=== PATIENT | female | born 1995 | race Caucasian/White ===

== ENCOUNTER 2016-06-23 05:51 | Inpatient (IN) | payer MEDICAID ==
[~2016-06-23] VITALS: Ht 167.6 cm; Wt 84.5 kg
[2016-06-23] VITALS (29 sets, daily range): BP systolic 115–146; BP diastolic 62–86
[~2016-06-23 05:51] MED LIST: DCS100C PO; FERR-47 PO; IBP600T1 PO; NITR-65 PO; PRNMV1T PO; breast pump
[2016-06-23] MEDS ORDERED: D5 LR IV SOLUTION 1,000 ML IV ONE (06:20)
[2016-06-23] MEDS ORDERED: D5 LR IV SOLUTION 1,000 ML IV SCH (06:23)
[2016-06-23] MEDS ORDERED: OXYTOCIN/NORMAL SALINE 500 ML IV SCH ×2 (06:30→13:47)
[2016-06-23] MEDS ORDERED: MINERAL OIL CONCENTRATE 99.9% 15 ML UDC TOP PRN (06:30)
[2016-06-23 07:01] LABS: BASOPHILS % (AUTO) 0 % (0-10); EOSINOPHILS % (AUTO) 0 % (0-10); LYMPHOCYTES # (AUTO) 1.6 X 10^3 (1.0-4.0); LYMPHOCYTES % (AUTO) 19 % (12-44); MEAN CORPUSCULAR HEMOGLOBIN 29 PG (25-34); MEAN CORPUSCULAR HGB CONC 33 G/DL (32-36); MEAN CORPUSCULAR VOLUME 87 FL (80-99); MEAN PLATELET VOLUME 9.5 FL (7.4-10.4); MONOCYTES # (AUTO) 0.5 X 10^3 (0.0-1.0); MONOCYTES % (AUTO) 5 % (0-12); NEUTROPHILS # (AUTO) 6.4 X 10^3 (1.8-7.8); NEUTROPHILS % (AUTO) 76 % (42-75); PLATELET COUNT 194 10^3/uL (130-400); RED BLOOD COUNT 3.94 10^6/uL (4.35-5.85); RED CELL DISTRIBUTION WIDTH 12.7 % (10.0-14.5); WHITE BLOOD COUNT 8.5 10^3/uL (4.3-11.0)
[2016-06-23 07:45] LABS: BILIRUBIN,URINE NEGATIVE (NEGATIVE); KETONES,URINE NEGATIVE (NEGATIVE); LEUKOCYTE ESTERASE ,URINE 1+ (NEGATIVE); NITRITE,URINE NEGATIVE (NEGATIVE); PH,URINE 6.5 (5-9); PROTEIN,URINE NEGATIVE (NEGATIVE); UROBILINOGEN,URINE NORMAL (NORMAL)
[2016-06-23] MEDS ORDERED: fentaNYL INJECTION 100 MCG/2 ML AMP IVP ONE (10:45)
[2016-06-23] MEDS ORDERED: LIDOCAINE/EPI 1%-1:200,000 (XYLOCAINE) 30 ML VIAL ONE (13:24)
[2016-06-23] MEDS ORDERED: LIDOCAINE/EPI 1%-1:200,000 (XYLOCAINE) 30 ML VIAL INJ ONE (13:45)
--- NOTE | 2016-06-23 13:53 | OB Labor & Delivery Record ---
Vag Delivery Note Vag Delivery Note Date of Delivery: 06/23/16 Preoperative Diagnosis: Renée Winter is a 20 /Para 2 /1 , Gestational Age 40 4/7 weeks for induction due to post dates Postoperative Diagnosis: Same Surgeon: DOROTHY CASTELLANOS Glaze Supervisor: Jennifer Green MS IV Anesthesia: local Delivery Type: Findings: Viable male , apgars 9/9, weight7#11oz Lacerations: bilateral interlabial lacerations (vaginal) Intact placenta with 3 vessel cord. No nuchal cord, body cord or shoulder dystocia Estimated Blood Loss: 300 ml Complications: None Condition: Stable Description of Procedure: The patient is a 20 /Para 2 /1 ,Gestational Age 40 4/7 weeks for induction due to post dates. She was admitted and informed consent was obtained. Her labor course was remarkable for Oxytocin augmentation, AROM, Fentanyl IV x 1. She progressed to complete dilatation and began to push. She was then set up for delivery. The infant's head was delivered atraumatically in the OA position. The baby remained OA with a compound presentation (hands on either shoulder) and remained in a horizontal position. The shoulders and remainder of the infant's body were then delivered without difficulty. Upon delivery, the head was held below the level of the perineum and the mouth and nares were bulb suctioned. The cord was doubly clamped and cut and the infant was handed off to the pediatric staff. An intact placenta with 3-vessel cord delivered via Yemi and there was found to be minimal bleeding.~ Vigorous fundal massage was performed and the fundus was found to be firm. IV oxytocin was given. Examination of the vagina and perineum revealed bilateral interlabial lacerations. However, the anterior lacerations were hemostatic. There was bleeding noted from the left side where the laceration extended toward the vagina and this was repaired in the usual fashion with 3-0 Vicryl suture. Following the repair, sponge, instrument and needle counts were correct. Mom and baby were both in stable condition in the labor suite. Vitals - Labs Vital Signs - I&O Vital Signs Date Time Temp Pulse Resp B/P (MAP) Pulse Ox O2 Delivery O2 Flow Rate FiO2 06/23/16 12:15 100 18 135/78 Room Air 06/23/16 12:00 97 18 125/73 Room Air 06/23/16 11:45 107 18 129/73 Room Air 06/23/16 11:30 97.3 96 18 134/81 Room Air 06/23/16 11:15 90 18 126/70 Room Air 06/23/16 11:00 96 18 122/65 Room Air 06/23/16 10:45 97 18 126/62 Room Air 06/23/16 10:30 96 18 136/69 Room Air 06/23/16 10:15 98.5 83 18 145/76 Room Air 06/23/16 10:00 80 18 137/73 Room Air 06/23/16 09:45 91 18 129/70 Room Air 06/23/16 09:30 76 18 128/72 Room Air 06/23/16 09:15 86 18 129/83 Room Air 06/23/16 09:00 75 18 129/68 Room Air 06/23/16 08:45 80 18 127/68 Room Air 06/23/16 08:30 96 18 132/67 Room Air 06/23/16 08:15 98.9 88 18 127/66 Room Air 06/23/16 08:00 Room Air 06/23/16 07:30 Room Air 06/23/16 07:00 98.9 98 18 117/80 Room Air Labs Laboratory Tests 06/23/16 06:50: White Blood Count 8.5, Red Blood Count 3.94L, Hemoglobin 11.4L, Hematocrit 34L, Mean Corpuscular Volume 87, Mean Corpuscular Hemoglobin 29, Mean Corpuscular Hemoglobin Concent 33, Red Cell Distribution Width 12.7, Platelet Count 194, Mean Platelet Volume 9.5, Neutrophils (%) (Auto) 76H, Lymphocytes (%) (Auto) 19 , Monocytes (%) (Auto) 5, Eosinophils (%) (Auto) 0, Basophils (%) (Auto) 0, Neutrophils # (Auto) 6.4, Lymphocytes # (Auto) 1.6, Monocytes # (Auto) 0.5, Eosinophils # (Auto) 0.0, Basophils # (Auto) 0.0 06/23/16 07:30: Urine Color YELLOW, Urine Clarity CLEAR, Urine pH 6.5, Urine Specific [place] 1.015L, Urine Protein NEGATIVE, Urine Glucose (UA) NEGATIVE, Urine Ketones NEGATIVE, Urine Nitrite NEGATIVE, Urine Bilirubin NEGATIVE, Urine Urobilinogen NORMAL, Urine Leukocyte Esterase 1+H, Urine RBC (Auto) 2+H, Urine RBC 2-5H, Urine WBC 2-5, Urine Squamous Epithelial Cells 2-5, Urine Crystals NONE, Urine Bacteria NEGATIVE, Urine Casts NONE, Urine Mucus NEGATIVE, Urine Culture Indicated NO DOROTHY CASTELLANOS DO Jun 23, 2016 13:53
[2016-06-23] MEDS ORDERED: IBUP-1773 PO (13:56)
[2016-06-23] MEDS ORDERED: HYDR-3729 PO (13:56)
--- NOTE | 2016-06-23 13:57 | Discharge Inst-Women's Service ---
Discharge Inst-Women's Serv Depart Medication/Instructions New, Converted or Re-Newed RX: RX on Chart Final Diagnosis post dates vaginal delivery Consults/Follow Up Additional Follow Up: Yes (6 weeks) Activity Activity: Activity as Tolerated Driving Instructions: You May Drive NO SMOKING: NO SMOKING Nothing Inside Vagina: No Douching, No [place], No Tampons Diet Discharge Diet: No Restrictions Symptoms to Report to : Swelling Increased, Bleeding Excessive, Fever Over 101 Degrees F, Vaginal Bleeding Increase, Cramps in Feet or Legs, Vaginal Discharge Foul For Any Problems or Questions: Contact Your Physician DOROTHY CASTELLANOS DO Jun 23, 2016 13:57
[2016-06-23] MEDS ORDERED: CATHETER FLUSH 10 ML SYR IV SCH (14:00)
[2016-06-23] MEDS ORDERED: MEASLES,MUMPS,RUBELLA 1 EA INJ SQ ONE (14:00)
[2016-06-23] MEDS ORDERED: BENZOCAINE/MENTHOL (DERMOPLAST) 56 ML CAN TP PRN (14:00)
[2016-06-23] MEDS ORDERED: HYDROcodone/APAP 5 MG/325 MG (LORTAB) TAB PO PRN (14:00)
[2016-06-23] MEDS ORDERED: TETANUS,DIPTH,PERTUSS P/F (BOOSTRIX) 0.5 ML VIAL IM ONE (14:00)
[2016-06-23] MEDS ORDERED: WITCH HAZEL(TUCKS) 40 EA JAR TOP PRN (14:00)
[2016-06-23] MEDS: IBUPROFEN 600 MG (MOTRIN) TAB PO SCH ×2 (16:05→22:32)
[2016-06-23] MEDS: DOCUSATE SODIUM 100 MG (COLACE) CAP PO SCH (22:32)
[2016-06-24 02:30] VITALS: BP 115/75
[2016-06-24] MEDS: IBUPROFEN 600 MG (MOTRIN) TAB PO SCH ×3 (04:43→21:30)
[2016-06-24 06:19] LABS: BASOPHILS % (AUTO) 0 % (0-10); EOSINOPHILS % (AUTO) 0 % (0-10); LYMPHOCYTES # (AUTO) 2.5 X 10^3 (1.0-4.0); LYMPHOCYTES % (AUTO) 19 % (12-44); MEAN CORPUSCULAR HEMOGLOBIN 29 PG (25-34); MEAN CORPUSCULAR HGB CONC 33 G/DL (32-36); MEAN CORPUSCULAR VOLUME 88 FL (80-99); MEAN PLATELET VOLUME 9.6 FL (7.4-10.4); MONOCYTES # (AUTO) 0.8 X 10^3 (0.0-1.0); MONOCYTES % (AUTO) 7 % (0-12); NEUTROPHILS # (AUTO) 9.6 X 10^3 (1.8-7.8); NEUTROPHILS % (AUTO) 74 % (42-75); PLATELET COUNT 195 10^3/uL (130-400); RED BLOOD COUNT 3.72 10^6/uL (4.35-5.85); RED CELL DISTRIBUTION WIDTH 12.5 % (10.0-14.5)
[2016-06-24 06:38] VITALS: BP 102/58
[2016-06-24] MEDS ORDERED: PRENATAL VITAMIN 1 EA TAB PO SCH (07:00)
--- NOTE | 2016-06-24 08:04 | Postpartum Progress Note ---
Note Note Day # 1 Subjective: Patient is without complaints. Ambulating, voiding. Tolerating a regular diet without nausea or vomiting. Normal lochia. Pain is well controlled with oral pain medications. Breast feeding. Objective: VS - Last 72 Hours, by Label 06/23/16 06/23/16 06/23/16 06/23/16 07:00 07:30 08:00 08:15 Temp 98.9 98.9 Pulse 98 88 Resp 18 18 B/P (MAP) 117/80 127/66 O2 Delivery Room Air Room Air Room Air Room Air 06/23/16 06/23/16 06/23/16 06/23/16 08:30 08:45 09:00 09:15 Pulse 96 80 75 86 Resp 18 18 18 18 B/P (MAP) 132/67 127/68 129/68 129/83 O2 Delivery Room Air Room Air Room Air Room Air 06/23/16 06/23/16 06/23/16 06/23/16 09:30 09:45 10:00 10:15 Temp 98.5 Pulse 76 91 80 83 Resp 18 18 18 18 B/P (MAP) 128/72 129/70 137/73 145/76 O2 Delivery Room Air Room Air Room Air Room Air 06/23/16 06/23/16 06/23/16 06/23/16 10:30 10:45 11:00 11:15 Pulse 96 97 96 90 Resp 18 18 18 18 B/P (MAP) 136/69 126/62 122/65 126/70 O2 Delivery Room Air Room Air Room Air Room Air 06/23/16 06/23/16 06/23/16 06/23/16 11:30 11:45 12:00 12:15 Temp 97.3 Pulse 96 107 97 100 Resp 18 18 18 18 B/P (MAP) 134/81 129/73 125/73 135/78 O2 Delivery Room Air Room Air Room Air Room Air 06/23/16 06/23/16 06/23/16 06/23/16 12:30 12:45 13:00 13:15 Pulse 113 82 94 Resp 18 18 18 B/P (MAP) 139/73 136/83 138/86 O2 Delivery Room Air Room Air Room Air Room Air 06/23/16 06/23/16 06/23/16 06/23/16 13:25 13:43 13:58 14:13 Temp 98.5 98.2 98.8 Pulse 100 93 93 Resp 18 18 18 B/P (MAP) 146/62 126/64 124/70 O2 Delivery Room Air Room Air Room Air Room Air 06/23/16 06/23/16 06/23/16 06/23/16 14:28 14:43 15:14 15:43 Temp 100.4 Pulse 103 88 99 99 Resp 18 18 18 18 B/P (MAP) 115/67 120/68 128/76 128/76 O2 Delivery Room Air Room Air Room Air Room Air 06/23/16 06/23/16 06/24/16 06/24/16 18:05 22:35 02:30 06:38 Temp 100.1 100.6 99.4 99.2 Pulse 102 105 83 Resp 18 18 18 B/P (MAP) 117/73 115/75 102/58 Pulse Ox 99 98 97 O2 Delivery Room Air Room Air Room Air Physical Exam: General - Alert and oriented, no apparent distress Abdomen - Soft, appropriately tender to palpation, non-distended, fundus firm at umbilicus Extremities - no edema, negative [place]'s bilaterally Laboratory Tests Test 06/24/16 06:11 Range/Units White Blood Count 13.0 H 4.3-11.0 10^3/uL Red Blood Count 3.72 L 4.35-5.85 10^6/uL Hemoglobin 10.7 L 11.5-16.0 G/DL Hematocrit 33 L 35-52 % Mean Corpuscular Volume 88 80-99 FL Mean Corpuscular Hemoglobin 29 25-34 PG Mean Corpuscular Hemoglobin Concent 33 32-36 G/DL Red Cell Distribution Width 12.5 10.0-14.5 % Platelet Count 195 130-400 10^3/uL Mean Platelet Volume 9.6 7.4-10.4 FL Neutrophils (%) (Auto) 74 42-75 % Lymphocytes (%) (Auto) 19 12-44 % Monocytes (%) (Auto) 7 0-12 % Eosinophils (%) (Auto) 0 0-10 % Basophils (%) (Auto) 0 0-10 % Neutrophils # (Auto) 9.6 H 1.8-7.8 X 10^3 Lymphocytes # (Auto) 2.5 1.0-4.0 X 10^3 Monocytes # (Auto) 0.8 0.0-1.0 X 10^3 Eosinophils # (Auto) 0.0 0.0-0.3 10^3/uL Basophils # (Auto) 0.0 0.0-0.1 10^3/uL Assessment: 20 y/o post- day # 1, status post spontaneous vaginal delivery. Recovering well, hemodynamically stable Acute blood loss anemia Hgb 10.7 Plan: Routine care. Encourage breast feeding. Encourage ambulation. Ferrous sulfate supplementation. Plan for discharge today, f/u with Dr. Parekh in 6 weeks. Vitals - Labs Vital Signs - I&O Vital Signs Date Time Temp Pulse Resp B/P (MAP) Pulse Ox O2 Delivery O2 Flow Rate FiO2 06/24/16 06:38 99.2 83 18 102/58 97 Room Air 06/24/16 02:30 99.4 105 18 115/75 98 Room Air 06/23/16 22:35 100.6 102 18 117/73 99 Room Air 06/23/16 18:05 100.1 06/23/16 15:43 100.4 99 18 128/76 Room Air 06/23/16 15:14 99 18 128/76 Room Air 06/23/16 14:43 88 18 120/68 Room Air 06/23/16 14:28 103 18 115/67 Room Air 06/23/16 14:13 98.8 93 18 124/70 Room Air 06/23/16 13:58 98.2 93 18 126/64 Room Air 06/23/16 13:43 98.5 100 18 146/62 Room Air 06/23/16 13:25 Room Air 06/23/16 13:15 Room Air 06/23/16 13:00 94 18 138/86 Room Air 06/23/16 12:45 82 18 136/83 Room Air 06/23/16 12:30 113 18 139/73 Room Air 06/23/16 12:15 100 18 135/78 Room Air 06/23/16 12:00 97 18 125/73 Room Air 06/23/16 11:45 107 18 129/73 Room Air 06/23/16 11:30 97.3 96 18 134/81 Room Air 06/23/16 11:15 90 18 126/70 Room Air 06/23/16 11:00 96 18 122/65 Room Air 06/23/16 10:45 97 18 126/62 Room Air 06/23/16 10:30 96 18 136/69 Room Air 06/23/16 10:15 98.5 83 18 145/76 Room Air 06/23/16 10:00 80 18 137/73 Room Air 06/23/16 09:45 91 18 129/70 Room Air 06/23/16 09:30 76 18 128/72 Room Air 06/23/16 09:15 86 18 129/83 Room Air 06/23/16 09:00 75 18 129/68 Room Air 06/23/16 08:45 80 18 127/68 Room Air 06/23/16 08:30 96 18 132/67 Room Air 06/23/16 08:15 98.9 88 18 127/66 Room Air I & O 06/24/16 07:00 Intake Total 1625 ml Balance 1625 ml Labs Laboratory Tests 06/24/16 06:11: White Blood Count 13.0H, Red Blood Count 3.72L, Hemoglobin 10.7L, Hematocrit 33L , Mean Corpuscular Volume 88, Mean Corpuscular Hemoglobin 29, Mean Corpuscular Hemoglobin Concent 33, Red Cell Distribution Width 12.5, Platelet Count 195, Mean Platelet Volume 9.6, Neutrophils (%) (Auto) 74, Lymphocytes (%) (Auto) 19, Monocytes (%) (Auto) 7, Eosinophils (%) (Auto) 0, Basophils (%) (Auto) 0, Neutrophils # (Auto) 9.6H, Lymphocytes # (Auto) 2.5, Monocytes # (Auto) 0.8, Eosinophils # (Auto) 0.0, Basophils # (Auto) 0.0 Microbiology 06/23/16 Urine Culture - Preliminary, Resulted RAPHAEL BORGES MD Jun 24, 2016 08:04
[2016-06-24] MEDS ORDERED: FERROUS SULF 325 MG (IRON) TAB PO SCH (09:00)
[2016-06-24 12:48] VITALS: BP 132/73
[2016-06-24] MEDS: DOCUSATE SODIUM 100 MG (COLACE) CAP PO SCH ×2 (12:49→21:30)
--- NOTE | 2016-06-24 12:52 | Progress Note-Standard ---
Standard Progress Note Progress Notes/Assess & Plan Date Seen 06/24/16 Assess & Plan/Chief Complaint Update Note I was informed by Dr. Nixon (caring for Renée's ) that the has signs concerning for sepsis. She also told me Renée revealed to her that she was not feeling well upon admission, has been feeling better today though. Renée tells me her roommate has tonsilitis and she has been in close contact with her. She states she did feel feverish overnight but feels fine currently. Her throat has been sore and she has had nasal congestion. No chest pain, shortness of breath, abdominal pain (other than mild cramps). Review of vitals shows low grade temps overnight (to 100.6F) - mild elevation in temp thereafter (in 99F range) but no actual fever. Last pulse 80s, normal BP , normal oxygen saturation. There is a leukocytosis noted, no left shift on today's CBC. Exam NAD No accessory muscle use for respiration Normal capillary refill Abd soft nttp fundus appropriately tender to palpation Trace bilat pitting edema I reviewed with Renée that we will hold her discharge. Screen for strep pharyngitis was requested by door liner helper and ordered and will be obtained per RN. Will continue to monitor closely but only meeting 1/4 SIRS criteria currently ( leukocytosis - and this is commonly seen in the state). I suspect a viral illness is the cause of her upper respiratory symptoms. Will consider oral antibiotic therapy if fevers noted. Will await culture. Hold discharge for today. Labs Laboratory Tests 06/23/16 06:50 06/24/16 06:11 RAPHAEL BORGES MD Jun 24, 2016 12:52
[2016-06-24 21:30] VITALS: BP 127/74
[2016-06-25] MEDS: IBUPROFEN 600 MG (MOTRIN) TAB PO SCH (03:18)
[2016-06-25 03:23] VITALS: BP 102/64
[2016-06-25 07:45] VITALS: BP 115/52
[2016-06-25] MEDS ORDERED: RIFA300C3 PO (10:24)
[2016-06-25] MEDS ORDERED: RIFAMPIN 150 MG (RIFADIN) CAP PO SCH (10:27)
--- NOTE | 2016-06-25 10:50 | Progress Note-Standard ---
Standard Progress Note Progress Notes/Assess & Plan Progress/Assessment & Plan Patient doing well, concerned about a clot she passed earlier, but bleeding continues to be WNL per RN. Vitals and Hgb stable. Patient's infant is being discharged home. Vital Sign - Last 24 Hours 06/24/16 06/24/16 06/25/16 12:48 21:30 03:23 Temp 97.2 97.6 97.7 Pulse 115 104 90 Resp 18 18 18 B/P (MAP) 132/73 127/74 102/64 Pulse Ox 98 98 95 O2 Delivery Room Air Room Air Room Air Laboratory Tests Test 06/24/16 13:25 Range/Units Group A Streptococcus Screen NEGATIVE NEGATIVE Uterine fundus firm and below umbilicus Diagnosis: PPD 1 NVD P: DC patient due to infant transfer so mother can be with infant DC'ed per my partner on Rifampin, and short term follow up recommended. GUMARO SOSA DO Jun 25, 2016 10:50 am
[2016-06-25] MEDS ORDERED: MEASLES,MUMPS,RUBELLA 1 EA INJ SC ONE (11:00)
[2016-06-25] MEDS ORDERED: TETANUS,DIPTH,PERTUSS P/F (BOOSTRIX) 0.5 ML VIAL IM ONE (11:00)
== END 2016-06-25 11:45 | disposition home or self-care (01) | DRG 775 ==
LOC: LDRP 06:07
PROVIDERS: ADMIT Obstetrics & Gynecology; ATTEND Obstetrics & Gynecology
PROC: 0HQ9XZZ Repair Perineum Skin, External Approach (ICD-10-PCS; principal; 2016-06-23)
PROC: 10E0XZZ Delivery of Products of Conception, External Approach (ICD-10-PCS; 2016-06-23)
PROC: 3E033VJ Introduction of Other Hormone into Peripheral Vein, Percutaneous Approach (ICD-10-PCS; 2016-06-23)
DX: O48.0 Post-term pregnancy (principal); O70.0 First degree perineal laceration during delivery; O90.81 Anemia of the puerperium; D62 Acute posthemorrhagic anemia; Z3A.40 40 weeks gestation of pregnancy; Z37.0 Single live birth; Z23 Encounter for immunization
CPT/HCPCS: 36415; 81000; 85025; 86850; 86900; 86901; 87088; 87430; 90707; 90715

== ENCOUNTER → 2016-08-19 | Outpatient (CLI) | payer MEDICAID ==
[~2016-08-19] MED LIST changes: +HYDR-3729 PO; +IBUP-1773 PO; +RIFA300C3 PO
--- NOTE | 2016-08-19 16:15 | Diagnostic Imaging Report ---
PROCEDURE: MRI lumbar spine. TECHNIQUE: Multiplanar, multisequence MRI of the lumbar spine was performed without contrast. INDICATION: Back pain. FINDINGS: There is suggestion of bilateral underlying pars defects at L5 level. No associated significant spondylolisthesis. The alignment of the posterior spinal line is satisfactory. The vertebral body heights are preserved. There is mild disc height loss at L5/S1. No significant disc desiccation. The marrow signal in the lumbar spine is unremarkable. The cauda equina and conus medullaris appear grossly unremarkable. T11/T12: There is a broad-based left paracentral disc protrusion not associated with spinal canal or foraminal stenosis. T12/L1: No disc herniation and no facet arthropathy. No spinal canal or foraminal stenosis. L1/L2: No disc herniation. There is mild facet hypertrophy. No spinal canal or foraminal stenosis. L2/L3: No disc herniation. There is mild facet hypertrophy. No spinal canal or foraminal stenosis. L3/L4: No disc herniation. There is mild to moderate facet arthropathy and tiny facet joint effusion. No central canal, lateral recess or foraminal stenosis. L4/L5: There is a minimal disc bulge and moderate facet hypertrophy. No central canal stenosis. There is minimal narrowing of the lateral recess, particularly on the left side. There is no foraminal stenosis. L5/S1: There is suggestion of bilateral L5 pars defects. There is also moderate facet arthropathy bilaterally. There is a broad-based right paracentral disc protrusion abutting the descending right S1 nerve root in the right lateral recess although no significant right lateral recess stenosis is seen. The left lateral recess and the central canal are patent. There is lipomatosis, however, around the thecal sac which is collapsed around the remaining sacral nerves at this level. No foraminal stenosis. When compared to 2009 exam, there is slightly increased epidural lipomatosis seen compared to the prior exam. IMPRESSION: Lower lumbar spine facet arthropathy and degenerative changes around bilateral L5 pars defects. There is lipomatosis in the lower spinal canal collapsing the thecal sac around the remaining sacral nerves at L5/S1 without compression by disc or facet hypertrophy. At this level, a prominent right paracentral disc protrusion displaces the right descending S1 nerve root posteriorly without significant compression otherwise in the right lateral recess. Dictated by: Dictated on workstation # [id number]
== END ==
LOC: RAD 14:20
PROVIDERS: ATTEND Nurse Practitioner Family
DX: M51.17 Intervertebral disc disorders with radiculopathy, lumbosacral region (principal); M47.816 Spondylosis without myelopathy or radiculopathy, lumbar region; D17.79 Benign lipomatous neoplasm of other sites
CPT/HCPCS: 72148

== ENCOUNTER → 2019-06-07 | Outpatient (CLI) | payer BC ==
--- NOTE | 2019-06-07 11:04 | Diagnostic Imaging Report ---
PROCEDURE: MRI lumbar spine. TECHNIQUE: Multiplanar, multisequence MRI of the lumbar spine was performed without contrast. INDICATION: Spondylolisthesis, chronic back pain. COMPARISON: 08/19/2016. FINDINGS: The last well-formed disc space will be labeled L5-S1 for the purposes of this examination. There is mild disc height loss with decreased T2 signal at the L5-S1 disc which appears stable since the prior exam. There is grade 1 anterolisthesis at L5-S1 measuring 5 mm. There do appear to be bilateral L5 pars defects. No acute fracture is seen. Vertebral body heights are preserved. The conus terminates in appropriate position. The soft tissues about the lumbar spine are otherwise unremarkable. T12-L1: No spinal canal or foraminal stenosis. L1-L2: No spinal canal or foraminal stenosis. L2-L3: No spinal canal or foraminal stenosis. L3-L4: No spinal canal or foraminal stenosis. L4-L5: No spinal canal or foraminal stenosis. L5-S1: Anterolisthesis. Mild disc bulge with right paracentral disc protrusion without significant spinal canal stenosis. There is mild bilateral foraminal narrowing. IMPRESSION: Stable grade 1 anterolisthesis at L5-S1 with bilateral L5 pars defects. There is mild spinal canal narrowing bilaterally at this level without high-grade spinal canal or foraminal stenosis seen. Overall findings appear similar to 2017. Dictated by: Dictated on workstation # [id number]
== END ==
LOC: RAD 10:05
PROVIDERS: ATTEND Nurse Practitioner Family
DX: M54.5 Low back pain (principal)
CPT/HCPCS: 72148

== ENCOUNTER 2019-06-26 08:22 | Outpatient (RCR) | payer BC | END 2019-09-24 | disposition home or self-care (01) | LOC: CARD 08:22 | PROVIDERS: ATTEND Nurse Practitioner Family | DX: R00.2 Palpitations (principal) | CPT/HCPCS: 93225; 93226 ==

== ENCOUNTER 2019-09-13 13:00 | Outpatient (RCR) | payer BC, OTHER | END 2019-12-12 | disposition home or self-care (01) | LOC: CARD 13:00 | PROVIDERS: ATTEND Internal Medicine Interventional Cardiology | DX: I49.3 Ventricular premature depolarization (principal); R00.2 Palpitations; R06.02 Shortness of breath | CPT/HCPCS: 93270; 93306 ==

== ENCOUNTER → 2020-09-04 | Outpatient (CLI) | payer BC ==
--- NOTE | 2020-09-04 12:01 | Diagnostic Imaging Report ---
PROCEDURE: Pelvic comp/transvaginal sonogram. TECHNIQUE: Complete transabdominal and transvaginal pelvic ultrasound was performed. In addition, limited pelvic Doppler was performed. INDICATION: Dyspareunia and evaluate IUD. FINDINGS: Uterus is retroverted measuring 8.4 x 4.1 x 6.6 cm. Endometrium is 4 mm in thickness. IUD appears to be appropriately centered in the endometrial canal. No myometrial mass is detected. Right ovary measures 4.1 x 1.5 x 1.5 cm and the left ovary measures 3.2 x 1.5 x 2.8 cm. Both ovaries contain small follicles. There is blood flow to both ovaries. No adnexal mass or free fluid is detected. IMPRESSION: 1. The IUD is appropriately centered in the endometrial canal. 2. Unremarkable transabdominal and transvaginal pelvic ultrasound. Dictated by: Dictated on workstation # [id number]
== END ==
LOC: RAD 10:00
PROVIDERS: ATTEND Obstetrics & Gynecology
DX: Z30.431 Encounter for routine checking of intrauterine contraceptive device (principal); N94.10 Unspecified dyspareunia
CPT/HCPCS: 76830; 76856

== ENCOUNTER → 2022-09-10 | Outpatient (CLI) | payer BC ==
[~2022-09-10] MED LIST changes: +GADOTERATE 0.5 MMOL/ML (CLARISCAN) 20 ML VIAL IV ONE; -RIFA300C3 PO; +RIFA300C8 PO
--- NOTE | 2022-09-10 11:22 | Diagnostic Imaging Report ---
PROCEDURE: MRI lumbar spine with and without contrast. TECHNIQUE: Multiplanar, multisequence MRI of the lumbar spine was performed with and without contrast. DATE: September 10, 2022. COMPARISON: MRI lumbar spine June 07, 2019. INDICATION: 26-year-old female, chronic low back pain. FINDINGS: There are bilateral L5 pars interarticularis defects with grade 1 anterolisthesis of L5 on S1 measuring 5.8 mm. This is unchanged since at least June 07, 2019. There is no edema in the region of the pars interarticularis. The additional alignment of the lumbar spine is unremarkable. There is no evidence of a diffuse marrow infiltrating or replacing process. There is no compression deformity. There is no acute fracture. There is no focal concerning bone lesion. The visualized cord and conus medullaris is unremarkable and terminates at the L1 level. There is moderate disc height loss at L5-S1. There is very mild diffuse disc bulge at T11-T12 without foraminal or spinal stenosis. L1-L2: There is no disc bulge. The facet joints and ligamentum flavum are unremarkable. There is no foraminal narrowing. There is no spinal canal stenosis. L2-L3: There is no disc bulge. The facet joints and ligamentum flavum are unremarkable. There is no foraminal narrowing. There is no spinal canal stenosis. L3-L4: There is no disc bulge. The facet joints and ligamentum flavum are unremarkable. There is no foraminal narrowing. There is no spinal canal stenosis. L4-L5: There is no disc bulge. The facet joints and ligamentum flavum are unremarkable. There is no foraminal narrowing. There is no spinal canal stenosis. L5-S1: There is an annular tear. There is mild diffuse disc bulge. This is also uncovering of the disc relating to the anterolisthesis. The facet joints and ligamentum flavum are unremarkable. There is mild left foraminal narrowing. There is no spinal canal stenosis. There is no identified abnormal contrast enhancement. IMPRESSION: 1. Bilateral L5 pars interarticularis defects with 5.8 mm grade 1 anterolisthesis of L5 on S1 unchanged since June 07, 2019. 2. L5-S1 annular tear with mild diffuse disc bulge causing mild left foraminal narrowing. The left foraminal narrowing does appear to be increased since June 07, 2019. 3. There are mild disc degenerative changes at T11-T12 unchanged since June 07, 2019. There is no foraminal or spinal stenosis at this level. Dictated by: Dictated on workstation # [id number]
== END ==
LOC: RAD 09:06
PROVIDERS: ATTEND Nurse Practitioner Family
DX: M43.17 Spondylolisthesis, lumbosacral region (principal); M51.27 Other intervertebral disc displacement, lumbosacral region; M48.07 Spinal stenosis, lumbosacral region; M51.37 Other intervertebral disc degeneration, lumbosacral region; M51.34 Other intervertebral disc degeneration, thoracic region
CPT/HCPCS: 72158

== ENCOUNTER → 2022-10-29 | Outpatient (CLI) | payer BC ==
[~2022-10-29] MED LIST changes: -GADOTERATE 0.5 MMOL/ML (CLARISCAN) 20 ML VIAL IV ONE
--- NOTE | 2022-10-29 16:12 | Diagnostic Imaging Report ---
INDICATION: Low back pain AP view of lumbar spine is obtained. Lateral images were obtained in neutral, flexed and extended positions. There is grade 1 anterolisthesis of L5 on S1 measuring approximately 0.7 cm. This is not significantly changed with motion. Vertebral body heights and disc spaces are maintained. There is no evidence of acute fracture. IMPRESSION: 0.7 cm anterolisthesis of L5 on S1 which demonstrates no definite instability with flexion and extension. This may be on the basis of spondylolysis and clinical correlation would be useful. Dictated by: Dictated on workstation # [id number]
== END ==
LOC: RAD 14:56
PROVIDERS: ATTEND Nurse Practitioner
DX: M43.17 Spondylolisthesis, lumbosacral region (principal); M43.06 Spondylolysis, lumbar region; M43.16 Spondylolisthesis, lumbar region
CPT/HCPCS: 72110